=== PATIENT | male | born 1945 | race Caucasian/White ===

== ENCOUNTER → 2019-12-16 11:12 | Outpatient (BNVA) | payer MEDICARE, SELFPAY | PROVIDERS: Family Provider Nurse Practitioner Family; PCP Nurse Practitioner Family; Visit Provider Emergency Medicine | DX: R10.9 Unspecified abdominal pain (principal); R33.9 Retention of urine, unspecified | CPT/HCPCS: 80053; 81000 ==

== ENCOUNTER → 2019-12-19 13:30 | Outpatient (BNVA) | payer MEDICARE, SELFPAY | PROVIDERS: Family Provider Nurse Practitioner Family; PCP Nurse Practitioner Family; Visit Provider Nurse Practitioner Family | DX: N39.0 Urinary tract infection, site not specified (principal) | CPT/HCPCS: 80053; 81001; 87077; 87086; 87186 ==

== ENCOUNTER → 2020-01-25 14:53 | Outpatient (BNVA) | payer MEDICARE, SELFPAY | PROVIDERS: Family Provider Nurse Practitioner Family; PCP Nurse Practitioner Family; Visit Provider Family Medicine | DX: N40.1 Benign prostatic hyperplasia with lower urinary tract symptoms (principal); I10 Essential (primary) hypertension; R33.8 Other retention of urine; Z13.220 Encounter for screening for lipoid disorders; Z13.6 Encounter for screening for cardiovascular disorders | CPT/HCPCS: 80053; 80061; 84153; 85025 ==

== ENCOUNTER 2020-02-01 06:00 | Outpatient (RCR) | payer MEDICARE, SELFPAY | END 2020-02-20 23:59 | disposition home or self-care (01) | LOC: MPT 06:00 | PROVIDERS: PCP Family Medicine; Referring Provider Family Medicine; Visit Provider Family Medicine | DX: M43.6 Torticollis (principal) | CPT/HCPCS: 97110; 97140; 97161 ==

== ENCOUNTER 2020-02-21 06:00 | Outpatient (RCR) | payer MEDICARE, SELFPAY | END 2020-03-22 23:59 | disposition home or self-care (01) | LOC: MPT 06:00 | PROVIDERS: PCP Family Medicine; Referring Provider Family Medicine; Visit Provider Family Medicine | DX: M53.82 Other specified dorsopathies, cervical region (principal) | CPT/HCPCS: 97110; 97140 ==

== ENCOUNTER → 2020-03-19 10:03 | Outpatient (BNVA) | payer MEDICARE, SELFPAY | PROVIDERS: PCP Family Medicine; Visit Provider Urology | DX: B37.49 Other urogenital candidiasis (principal); N40.1 Benign prostatic hyperplasia with lower urinary tract symptoms; R33.8 Other retention of urine | CPT/HCPCS: 81003 ==

== ENCOUNTER → 2020-09-12 16:39 | Outpatient (BNVA) | payer MEDICARE, SELFPAY | PROVIDERS: PCP Family Medicine; Visit Provider Urology | DX: N40.1 Benign prostatic hyperplasia with lower urinary tract symptoms (principal); R33.8 Other retention of urine; N39.0 Urinary tract infection, site not specified | CPT/HCPCS: 81003; 87077; 87086; 87184 ==

== ENCOUNTER → 2021-01-14 12:25 | Outpatient (BNVA) | payer MEDICARE, SELFPAY | PROVIDERS: PCP Family Medicine; Visit Provider Urology | DX: N39.0 Urinary tract infection, site not specified (principal) | CPT/HCPCS: 81003; 87086 ==

== ENCOUNTER → 2021-02-27 11:31 | Outpatient (BNVA) | payer MEDICARE, SELFPAY | PROVIDERS: PCP Family Medicine; Visit Provider Urology | DX: N39.0 Urinary tract infection, site not specified (principal); N31.8 Other neuromuscular dysfunction of bladder; R33.9 Retention of urine, unspecified; Z78.9 Other specified health status | CPT/HCPCS: 81003 ==

== ENCOUNTER → 2021-05-28 10:38 | Outpatient (BNVA) | payer MEDICARE, SELFPAY | PROVIDERS: PCP Family Medicine; Visit Provider Urology | DX: R33.9 Retention of urine, unspecified (principal) | CPT/HCPCS: 81003 ==

== ENCOUNTER → 2021-06-20 10:25 | Outpatient (BNVA) | payer MEDICARE, SELFPAY | PROVIDERS: PCP Family Medicine; Visit Provider Urology | DX: N39.0 Urinary tract infection, site not specified (principal) | CPT/HCPCS: 81000 ==

== ENCOUNTER → 2021-07-31 09:33 | Outpatient (BNVA) | payer MEDICARE, SELFPAY | PROVIDERS: PCP Family Medicine; Visit Provider Family Medicine | DX: I10 Essential (primary) hypertension (principal); M54.50 Low back pain, unspecified; Z12.5 Encounter for screening for malignant neoplasm of prostate | CPT/HCPCS: 72100; 80053; 80061; 84153 ==

== ENCOUNTER → 2022-06-11 10:48 | Outpatient (BNVA) | payer MEDICARE, SELFPAY | PROVIDERS: PCP Family Medicine; Visit Provider Family Medicine | DX: N40.1 Benign prostatic hyperplasia with lower urinary tract symptoms (principal); R33.8 Other retention of urine; I10 Essential (primary) hypertension; Z13.220 Encounter for screening for lipoid disorders; Z13.6 Encounter for screening for cardiovascular disorders; Z12.5 Encounter for screening for malignant neoplasm of prostate; K59.04 Chronic idiopathic constipation; K62.89 Other specified diseases of anus and rectum | CPT/HCPCS: 80053; 80061; G0103 ==

== ENCOUNTER → 2022-07-28 09:40 | Outpatient (BNVA) | payer MEDICARE, SELFPAY | PROVIDERS: PCP Family Medicine; Visit Provider Registered Nurse | DX: R33.9 Retention of urine, unspecified (principal); R97.20 Elevated prostate specific antigen [PSA]; N40.1 Benign prostatic hyperplasia with lower urinary tract symptoms; R33.8 Other retention of urine | CPT/HCPCS: 84153 ==

== ENCOUNTER → 2022-07-29 11:32 | Outpatient (BNVA) | payer MEDICARE, SELFPAY | PROVIDERS: PCP Family Medicine; Visit Provider Surgery | DX: K62.89 Other specified diseases of anus and rectum (principal) | CPT/HCPCS: 99203 ==

== ENCOUNTER → 2023-01-07 13:24 | Outpatient (BNVA) | payer MEDICARE, SELFPAY | PROVIDERS: PCP Family Medicine; Visit Provider Nurse Practitioner Family | DX: N39.0 Urinary tract infection, site not specified (principal); R33.9 Retention of urine, unspecified | CPT/HCPCS: 81000; 87077; 87086; 87184 ==

== ENCOUNTER → 2023-04-17 09:25 | Outpatient (BNVA) | payer MEDICARE, SELFPAY | PROVIDERS: PCP Family Medicine; Visit Provider Emergency Medicine | DX: R39.9 Unspecified symptoms and signs involving the genitourinary system (principal); R31.9 Hematuria, unspecified; R82.998 Other abnormal findings in urine; N30.00 Acute cystitis without hematuria; R33.9 Retention of urine, unspecified | CPT/HCPCS: 81000; 87086 ==

== ENCOUNTER → 2023-06-06 10:03 | Outpatient (BNVA) | payer MEDICARE, SELFPAY | PROVIDERS: PCP Family Medicine; Visit Provider Emergency Medicine | DX: N30.90 Cystitis, unspecified without hematuria (principal); R33.9 Retention of urine, unspecified; N40.1 Benign prostatic hyperplasia with lower urinary tract symptoms; R33.8 Other retention of urine | CPT/HCPCS: 81000; 87086 ==

== ENCOUNTER → 2023-06-15 14:12 | Outpatient (BNVA) | payer MEDICARE, SELFPAY | PROVIDERS: PCP Family Medicine; Referring Provider Family Medicine; Visit Provider Family Medicine | DX: M54.50 Low back pain, unspecified (principal); G89.29 Other chronic pain | CPT/HCPCS: 72100 ==

== ENCOUNTER → 2023-08-12 09:14 | Outpatient (BNVA) | payer MEDICARE, SELFPAY | PROVIDERS: PCP Family Medicine; Referring Provider Orthopaedic Surgery; Visit Provider Anesthesiology Pain Medicine | DX: M43.6 Torticollis; M51.16 Intervertebral disc disorders with radiculopathy, lumbar region | CPT/HCPCS: 99204 ==

== ENCOUNTER → 2023-08-24 14:51 | Outpatient (BNVA) | payer MEDICARE, SELFPAY | PROVIDERS: PCP Family Medicine; Visit Provider Anesthesiology Pain Medicine | DX: M54.16 Radiculopathy, lumbar region (principal) | CPT/HCPCS: 64483; 64484; J1100; J3490 ==

== ENCOUNTER → 2023-09-09 10:13 | Outpatient (CLI) | payer MEDICARE, SELFPAY ==
--- NOTE | 2023-09-09 10:15 | MR_ITS ---
WS: [id number] MRI LUMBAR SPINE NONCONTRAST TECHNIQUE: Sagittal T1, T2 and STIR imaging. Axial T1 and T2 imaging. CLINICAL INFORMATION: M54.16 - Radiculopathy, lumbar region COMPARISON: None. FINDINGS: Edema within the S2 vertebral body partially visualized with a small 8 mm marrow replacing lesion. Metastatic disease not excluded considering history of prostate cancer. Posttraumatic or insu fficiency fractures are additional considerations. Recommend further evaluation with MRI pelvis and b one scan. Mild lumbar curve. Edema within the RIGHT L3 and L4 endplates likely degenerative. Small am ount of degenerative edema in the RIGHT L5 endplate. L1-L2: Mild facet arthropathy. Spinal canal and foramen are patent. L2-L3: Minimal annular bulging. Mild facet arthropathy. Spinal canal and foramen are patent. L3-L4: Slight retrolisthesis. Mild annular bulging with narrowing of the RIGHT subarticular recess. M ild facet arthropathy. Mild RIGHT foraminal narrowing. L4-L5: Mild annular bulging. Impingement on the subarticular recess and traversing L5 nerve roots. Mi ld RIGHT foraminal narrowing. Moderate facet arthropathy. L5-S1: Mild annular bulging. Mild facet arthropathy. Mild RIGHT foraminal narrowing. LEFT foramen is patent. Visualized pelvic bony structures: Normal. Paravertebral soft tissues: Normal. Partially visualized peripelvic renal cysts. MR/MR lumbar spine wo con* [id number] IMPRESSION: 1. Mild lumbar curve. No acute compression. No high-grade central canal stenos is. 2. Edema within the S2 vertebral body partially visualized. Small ovoid lesion measuring 8 mm nonspecific but suspicious for metastatic disease considering h istory of prostate cancer. Recommend further evaluation with MRI pelvis and bon e scan. 3. Disc desiccation with endplate degenerative changes L3-4 with endplate gustabo a eccentric to the RIGHT. 4. Mild narrowing of the RIGHT L3-4 and bilateral L4-5 subarticular recess due to mild disc bulging. 5. Mild RIGHT L5-S1 foraminal narrowing. 6. Moderate facet arthropathy L3-L5.
== END | disposition home or self-care (01) ==
LOC: RAD 10:13
PROVIDERS: PCP Family Medicine; Visit Provider Anesthesiology Pain Medicine
DX: M43.6 Torticollis (principal); M51.16 Intervertebral disc disorders with radiculopathy, lumbar region; M48.061 Spinal stenosis, lumbar region without neurogenic claudication; G95.9 Disease of spinal cord, unspecified; Z85.46 Personal history of malignant neoplasm of prostate
CPT/HCPCS: 72148; 99214

== ENCOUNTER → 2023-09-15 10:41 | Outpatient (BNVA) | payer MEDICARE, SELFPAY | PROVIDERS: PCP Family Medicine; Visit Provider Family Medicine | DX: Z00.00 Encounter for general adult medical examination without abnormal findings (principal); Z71.89 Other specified counseling; Z13.220 Encounter for screening for lipoid disorders; Z13.6 Encounter for screening for cardiovascular disorders; Z13.1 Encounter for screening for diabetes mellitus; I10 Essential (primary) hypertension; Z85.46 Personal history of malignant neoplasm of prostate; K21.9 Gastro-esophageal reflux disease without esophagitis; M51.16 Intervertebral disc disorders with radiculopathy, lumbar region; M53.3 Sacrococcygeal disorders, not elsewhere classified; R93.7 Abnormal findings on diagnostic imaging of other parts of musculoskeletal system | CPT/HCPCS: 80053; 80061; 84153 ==

== ENCOUNTER 2023-09-28 14:00 | Outpatient (CLI) | payer MEDICARE, SELFPAY ==
--- NOTE | 2023-09-28 14:15 | MR_ITS ---
WS: [id number] MRI OF THE PELVIS WITHOUT AND WITH GADOLINIUM ENHANCEMENT INDICATION: Abnormality seen on recent lumbar spine MRI TECHNIQUE: Coronal T1, STIR, axial T1, axial T2, sagittal T2,. Multiplanar post gadolinium imaging ob tained with fat saturation technique. FINDINGS: Again seen is the lesion in the S2 vertebral body with associated heterogeneous enhancement . Differential considerations include posttraumatic fracture versus metastatic disease. Recommend cor relation with recent trauma or history of neoplasm. Bone scan can be performed in further evaluation to evaluate the remaining bony structures. In addition, suggestion of a bony lesion in this location on the prior CT from 2019 possibly a hemangioma or fibrous dysplasia. Otherwise normal bone marrow signal in the bony pelvis and sacrum. No other suspicious lesions. 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 Benign-appearing sclerosis LEFT ilium adjacent to the SI joint unchanged since the CT in 2019. Normal sacral ala. No other suspicious findings.. MR/MR pelvis wo/w con [id number] IMPRESSION: 1. Persistent nonspecific focal signal abnormality with enhancement involvin g the S2 vertebral body. A small amount of associated epidural enhancement. No significant presacral edema. Differential considerations include metastatic dis ease versus less likely posttraumatic fracture. Suggestion of a bony lesion in this location on the prior CT in 2019 discussed above. 2. Recommend bone scan to evaluate for additional lesions. In addition, recomm end noncontrast CT sacrum for comparison to the prior CT 2019 3. Otherwise recommend follow-up MRI of the sacrum without and with gadolinium enhancement in 3 months to evaluate stability.
[2023-09-28] MEDS: gadobenate dimeglumine 20 mL vial IV (14:41)
== END 2023-09-28 14:01 | disposition home or self-care (01) ==
LOC: RAD 14:02
PROVIDERS: PCP Family Medicine; Visit Provider Anesthesiology Pain Medicine
DX: Z85.46 Personal history of malignant neoplasm of prostate (principal); M89.8X8 Other specified disorders of bone, other site; M46.1 Sacroiliitis, not elsewhere classified
CPT/HCPCS: 72197; A9577

== ENCOUNTER 2023-10-02 07:49 | Outpatient (CLI) | payer MEDICARE, SELFPAY ==
--- NOTE | 2023-10-02 08:00 | NM_ITS ---
WS: [id number] NUCLEAR MEDICINE BONE SCAN Radiopharmaceutical: 24.1 Tc-99m MDP mCi IV Injection site: Antecubital Postinjection imaging delay: 1 hr CLINICAL INFORMATION: Z85.46 - Personal history of malignant neoplasm of prostate COMPARISON: 09/08 and 09/28/2023 FINDINGS: Bone lesions: There are no osseous lesions suspicious for metastatic disease. Soft tissue contours: Normal. Kidneys: Normal. Other findings: Degenerative type uptake involving both AC joints and both knees. NM/NM bone scan whole body* [id number] IMPRESSION: 1. No evidence of osseous metastatic disease. 2. No areas of suspicious radiotracer activity. 3. Recommend follow-up with MRI of the pelvis without and with gadolinium enha ncement or noncontrast CT of the pelvis and sacrum in 3 months to evaluate stab ility of the previously described findings.
== END 2023-10-02 07:50 | disposition home or self-care (01) ==
PROVIDERS: PCP Family Medicine; Visit Provider Anesthesiology Pain Medicine
DX: Z85.46 Personal history of malignant neoplasm of prostate (principal)
CPT/HCPCS: 78306; A9561

== ENCOUNTER → 2024-11-04 10:07 | Outpatient (BNVA) | payer MEDICARE, SELFPAY | PROVIDERS: PCP Family Medicine; Visit Provider Nurse Practitioner | DX: N39.0 Urinary tract infection, site not specified (principal) | CPT/HCPCS: 81000; 87077; 87086; 87184 ==

== ENCOUNTER → 2025-01-17 13:20 | Outpatient (BNVA) | payer MEDICARE, SELFPAY | PROVIDERS: PCP Family Medicine; Visit Provider Nurse Practitioner | DX: R39.89 Other symptoms and signs involving the genitourinary system (principal); N39.0 Urinary tract infection, site not specified | CPT/HCPCS: 81000; 87086 ==